=== PATIENT | female | born 1995 | race Caucasian/White ===

== ENCOUNTER 2016-11-30 04:01 | Emergency (ER) | payer OTHER ==
[~2016-11-30] VITALS: Ht 167.6 cm; Wt 55.3 kg
[~2016-11-30 04:01] MED LIST: ADVAIR 250/501 DISK IH; Proventil,Ventolin 0 IH; Proventil,Ventolin H IH; predniSONE PO
[2016-11-30 04:38] LABS: HEMATOCRIT 34.3 % (36.0-46.0); MCH 30.8 PG (29.0-34.0); MCV 87.9 FL (83-99); MEAN PLAT.VOLUME 10.4 uM^3 (9.5-12.4); PLATELET COUNT 354 K/uL (156-360); RBC DIS.WIDTH-CV 12.7 % (11.8-14.6); RBC DIS.WIDTH-SD 39.6 % (39-53); WHITE BLOOD COUNT 10.3 K/uL (4.1-10.2)
[2016-11-30 04:48] LABS: CHLORIDE 108 mEq/L (99-109); POTASSIUM 2.9 mEq/L (3.7-5.4); SODIUM 138 mEq/L (136-147)
[2016-11-30 04:50] LABS: GLUCOSE 102 mg/dL (70-99)
[2016-11-30 04:52] LABS: ANION GAP 9 MEQ/L (2-14); TOTAL BILIRUBIN 0.9 mg/dL (0.0-1.0)
[2016-11-30 04:54] LABS: ALKALINE PHOSPHATASE 46 IU/L (3-129); GFR ESTIMATE (CALCULATED) > 59 mL/min/
[2016-11-30 04:55] LABS: UREA NITROGEN (BUN) 11 mg/dL (9-23)
[2016-11-30 04:57] LABS: LIPASE 18 U/L (1.0-51.0)
[2016-11-30 05:04] LABS: QUANTITATIVE HCG < 4.0 MIU/ML
[2016-11-30] MEDS ORDERED: PERCOCET 5/31 TABLET PO (06:05)
[2016-11-30] MEDS ORDERED: TORADOL10 MG PO (06:05)
[2016-11-30 09:25] LABS: ADD MIUA? YES; BILIRUBIN NEGATIVE; BLOOD LARGE; COLOR YELLOW ((YELLOW)); GLUCOSE (STRIP) NEGATIVE; KETONES NEGATIVE; LEUKOCYTES NEGATIVE; NITRITE NEGATIVE; PROTEIN (STRIP) NEGATIVE
[2016-11-30 09:43] LABS: SPECIFIC GRAVITY 1.052 (1.000-1.030)
[2016-11-30 09:57] LABS: BACTERIA NONE SEEN; CASTS NONE SEEN /LPF; CRYSTALS NONE SEEN; EPITHELIAL CELLS RARE; MUCUS NONE SEEN; RED BLOOD CELLS 40-50 /HPF (0-5); UCUL ADDED? NO; WHITE BLOOD CELLS NONE SEEN /HPF (0-5)
[2016-11-30 10:23] VITALS: BP 98/69
== END 2016-11-30 10:24 | disposition home or self-care (01) ==
LOC: EME 04:01
PROVIDERS: Emergency Medicine
DX: N83.201 Unspecified ovarian cyst, right side (principal); N83.202 Unspecified ovarian cyst, left side; R10.30 Lower abdominal pain, unspecified; E87.6 Hypokalemia; J45.909 Unspecified asthma, uncomplicated; Z88.1 Allergy status to other antibiotic agents
CPT/HCPCS: 74177; 76856; 80053; 81003; 83605; 83690; 84702; 85027; 86850; 86900; 86901; 99281; 99285; J1885; J2270; J2405; J7030

== ENCOUNTER 2017-05-09 13:37 | Observation (INO) | payer OTHER ==
[~2017-05-09] VITALS: Ht 167.6 cm; Wt 54.5 kg
[~2017-05-09 13:37] MED LIST changes: +PERCOCET 5/31 TABLET PO; +TORADOL10 MG PO
[2017-05-09 15:19] LABS: HEMATOCRIT 37.2 % (36.0-46.0); MCH 30.2 PG (29.0-34.0); MCHC 34.1 G/DL (30.0-36.0); MCV 88.6 FL (83-99); MEAN PLAT.VOLUME 10.5 uM^3 (9.5-12.4); PLATELET COUNT 399 K/uL (156-360); RBC DIS.WIDTH-CV 12.3 % (11.8-14.6); RBC DIS.WIDTH-SD 39.7 % (39-53); WHITE BLOOD COUNT 10.1 K/uL (4.1-10.2)
[2017-05-09 15:24] LABS: CHLORIDE 109 mEq/L (99-109); POTASSIUM 3.7 mEq/L (3.7-5.4); SODIUM 141 mEq/L (136-147)
[2017-05-09 15:25] LABS: GLUCOSE 94 mg/dL (70-99)
[2017-05-09 15:27] LABS: ANION GAP 7 MEQ/L (2-14)
[2017-05-09 15:29] LABS: GFR ESTIMATE (CALCULATED) > 59 mL/min/
[2017-05-09 15:30] LABS: UREA NITROGEN (BUN) 8 mg/dL (9-23)
[2017-05-09 15:37] LABS: TROP-I INTERPRETATION NEGATIVE; TROPONIN-I < 0.01 ng/mL (0.0-0.30)
[2017-05-09] MEDS ORDERED: VENTOLIN HFA18 GM IH (18:21)
[2017-05-09 20:41] VITALS: BP 99/78
== END 2017-05-09 20:43 | disposition left against medical advice (07) ==
LOC: EME 13:37 → EDOF 18:36
PROVIDERS: Emergency Medicine
DX: I49.8 Other specified cardiac arrhythmias (principal); J45.909 Unspecified asthma, uncomplicated; Z88.1 Allergy status to other antibiotic agents
CPT/HCPCS: 80048; 84484; 85027; 93005; 99281; 99285; G0378; J7030

== ENCOUNTER 2017-10-08 14:44 | Observation (INO) | payer OTHER ==
[~2017-10-08] VITALS: Ht 167.6 cm; Wt 52.2 kg
[~2017-10-08 14:44] MED LIST changes: +VENTOLIN HFA18 GM IH
[2017-10-08 16:11] LABS: BASOPHIL COUNT 0.1 K/uL (0-0.1); EOSINOPHIL (%) 1.7 % (0-5); EOSINOPHIL COUNT 0.2 K/uL (0-0.3); HEMATOCRIT 37.7 % (36.0-46.0); IMMATURE GRANULOCYTE (%) 0.5 % (0.0-0.7); IMMATURE GRANULOCYTE COUNT 0.1 K/uL; INSTRUMENT ABS NEUTROPHIL CT 8.2 K/uL; LYMPHOCYTE COUNT 3.5 K/uL (1.0-2.8); MCH 30.8 PG (29.0-34.0); MCV 87.9 FL (83-99); MEAN PLAT.VOLUME 10.7 uM^3 (9.5-12.4); MONOCYTE (%) 9.2 % (3-12); MONOCYTE COUNT 1.2 K/uL (0-0.8); NEUTROPHIL (%) 61.8 % (45-76); NEUTROPHIL COUNT 8.2 K/uL (1.8-6.4); PLATELET COUNT 366 K/uL (156-360); RBC DIS.WIDTH-CV 12.2 % (11.8-14.6); RBC DIS.WIDTH-SD 39.4 % (39-53); RED BLOOD COUNT 4.29 M/uL (3.80-5.20); WHITE BLOOD COUNT 13.2 K/uL (4.1-10.2)
[2017-10-08 16:21] LABS: CHLORIDE 109 mEq/L (99-109); POTASSIUM 3.6 mEq/L (3.7-5.4); SODIUM 140 mEq/L (136-147)
[2017-10-08 16:23] LABS: GLUCOSE 103 mg/dL (70-99)
[2017-10-08 16:25] LABS: ANION GAP 11 MEQ/L (2-14); TOTAL BILIRUBIN 0.4 mg/dL (0.0-1.0)
[2017-10-08 16:27] LABS: ALKALINE PHOSPHATASE 57 IU/L (3-129); GFR ESTIMATE (CALCULATED) > 59 mL/min/
[2017-10-08 16:28] LABS: UREA NITROGEN (BUN) 10 mg/dL (9-23)
[2017-10-08 16:29] LABS: ADD MIUA? YES; BILIRUBIN NEGATIVE; BLOOD NEGATIVE; COLOR YELLOW ((YELLOW)); GLUCOSE (STRIP) NEGATIVE; KETONES NEGATIVE; LEUKOCYTES MODERATE; NITRITE NEGATIVE; PROTEIN (STRIP) NEGATIVE; SPECIFIC GRAVITY 1.008 (1.000-1.030); UROBILINOGEN 0.2 MG/DL (0.2-1.0)
[2017-10-08 16:30] LABS: LIPASE 31 U/L (1.0-51.0)
[2017-10-08 16:34] LABS: INTERNAL CONTROL VALID? YES
[2017-10-08 16:40] LABS: BACTERIA RARE /HPF; EPITHELIAL CELLS 2+ /HPF; MUCUS NONE SEEN /LPF; RED BLOOD CELLS 0-5 /HPF (0-5); UCUL ADDED? YES
[2017-10-08] MEDS ORDERED: BENADRYL ALLERG25 MG PO (22:30)
[2017-10-09] VITALS: BP 110/72
[2017-10-09 04:08] VITALS: BP 108/68
[2017-10-09 06:07] LABS: BASOPHIL COUNT 0.1 K/uL (0-0.1); EOSINOPHIL (%) 1.4 % (0-5); EOSINOPHIL COUNT 0.2 K/uL (0-0.3); HEMATOCRIT 36.2 % (36.0-46.0); IMMATURE GRANULOCYTE (%) 0.3 % (0.0-0.7); INSTRUMENT ABS NEUTROPHIL CT 7.2 K/uL; LYMPHOCYTE COUNT 4.3 K/uL (1.0-2.8); MCH 31.1 PG (29.0-34.0); MCHC 34.8 G/DL (30.0-36.0); MCV 89.4 FL (83-99); MEAN PLAT.VOLUME 10.9 uM^3 (9.5-12.4); MONOCYTE (%) 8.3 % (3-12); MONOCYTE COUNT 1.1 K/uL (0-0.8); NEUTROPHIL (%) 56.1 % (45-76); NEUTROPHIL COUNT 7.2 K/uL (1.8-6.4); PLATELET COUNT 343 K/uL (156-360); RBC DIS.WIDTH-CV 12.6 % (11.8-14.6); RBC DIS.WIDTH-SD 41.1 % (39-53); RED BLOOD COUNT 4.05 M/uL (3.80-5.20); WHITE BLOOD COUNT 12.9 K/uL (4.1-10.2)
[2017-10-09 06:24] LABS: ALKALINE PHOSPHATASE 48 IU/L (3-129); ANION GAP 10 MEQ/L (2-14); CHLORIDE 108 MEQ/L (99-109); GFR ESTIMATE (CALCULATED) > 59 mL/min/; GLUCOSE 90 mg/dL (70-99); POTASSIUM 3.6 MEQ/L (3.7-5.4); SAMPLE HEMOLYSIS CHECK 0; SAMPLE ICTERIC CHECK 0; SAMPLE LIPEMIA CHECK 0; SODIUM 141 MEQ/L (136-147); TOTAL BILIRUBIN 0.7 MG/DL (0.0-1.0); UREA NITROGEN (BUN) 6 mg/dL (9-23)
[2017-10-09 07:49] VITALS: BP 98/59
[2017-10-09] MEDS ORDERED: DILAUDID2 MG PO (09:30)
[2017-10-09] MEDS ORDERED: COLACE100 MG PO (09:30)
[2017-10-09 11:09] VITALS: BP 100/61
[2017-10-09 20:00] VITALS: BP 93/59
[2017-10-10 00:26] VITALS: BP 93/64
[2017-10-10 04:04] VITALS: BP 93/55
[2017-10-10 08:03] VITALS: BP 102/61
[2017-10-10 09:30] LABS: EOSINOPHIL (%) 1.4 % (0-5); EOSINOPHIL COUNT 0.2 K/uL (0-0.3); HEMATOCRIT 34.6 % (36.0-46.0); IMMATURE GRANULOCYTE (%) 0.3 % (0.0-0.7); LYMPHOCYTE COUNT 1.4 K/uL (1.0-2.8); MCH 30.5 PG (29.0-34.0); MCHC 33.5 G/DL (30.0-36.0); MCV 91.1 FL (83-99); MEAN PLAT.VOLUME 10.9 uM^3 (9.5-12.4); MONOCYTE (%) 10.5 % (3-12); MONOCYTE COUNT 1.1 K/uL (0-0.8); NEUTROPHIL (%) 74.8 % (45-76); PLATELET COUNT 271 K/uL (156-360); RBC DIS.WIDTH-CV 12.6 % (11.8-14.6); RBC DIS.WIDTH-SD 41.8 % (39-53); WHITE BLOOD COUNT 10.7 K/uL (4.1-10.2)
[2017-10-10 09:52] LABS: ANION GAP 8 MEQ/L (2-14); CHLORIDE 108 MEQ/L (99-109); GFR ESTIMATE (CALCULATED) > 59 mL/min/; GLUCOSE 86 mg/dL (70-99); POTASSIUM 3.8 MEQ/L (3.7-5.4); SAMPLE HEMOLYSIS CHECK 1; SAMPLE ICTERIC CHECK 0; SAMPLE LIPEMIA CHECK 0; SODIUM 141 MEQ/L (136-147); UREA NITROGEN (BUN) 5 mg/dL (9-23)
[2017-10-10 11:39] VITALS: BP 101/64
[2017-10-10] MEDS ORDERED: ZOFRAN4 MG PO (13:28)
== END 2017-10-10 13:52 | disposition home or self-care (01) ==
LOC: EME 14:44 → 2EAST 22:10 → EDOF 22:10 → ENRESERV 22:13 → 2EAST 23:57
PROVIDERS: Emergency Medicine; Physician Assistant; Surgery
PROC: 0FT44ZZ Resection of Gallbladder, Percutaneous Endoscopic Approach (ICD-10-PCS; principal; 2017-10-09)
DX: K80.10 Calculus of gallbladder with chronic cholecystitis without obstruction (principal); I49.8 Other specified cardiac arrhythmias; J45.909 Unspecified asthma, uncomplicated; Z88.1 Allergy status to other antibiotic agents
CPT/HCPCS: 74176; 76705; 80048; 80053; 81003; 83690; 83735; 84100; 84703; 85025; 87086; 88304; 99281; 99285; G0378; J0131; J0744; J1170; J1650; J1885; J2175; J2250; J2270; J2405; J2765; J3010; J3480; J7030; J7120; S0028

== ENCOUNTER 2017-10-10 23:48 | Inpatient (IN) | payer OTHER ==
[~2017-10-10] VITALS: Ht 167.6 cm; Wt 55.4 kg
[~2017-10-10 23:48] MED LIST changes: +BENADRYL ALLERG25 MG PO; +COLACE100 MG PO; +DILAUDID2 MG PO; +ZOFRAN4 MG PO
[2017-10-11] VITALS (7 sets, daily range): BP systolic 91–103; BP diastolic 52–69
[2017-10-11 00:26] LABS: MCH 30.8 PG (29.0-34.0); MCHC 34.6 G/DL (30.0-36.0); MCV 89.1 FL (83-99); MEAN PLAT.VOLUME 10.5 uM^3 (9.5-12.4); PLATELET COUNT 271 K/uL (156-360); RBC DIS.WIDTH-CV 12.2 % (11.8-14.6); RED BLOOD COUNT 3.93 M/uL (3.80-5.20); WHITE BLOOD COUNT 15.1 K/uL (4.1-10.2)
[2017-10-11 00:36] LABS: CHLORIDE 106 mEq/L (99-109); POTASSIUM 3.7 mEq/L (3.7-5.4); SODIUM 135 mEq/L (136-147)
[2017-10-11 00:37] LABS: GLUCOSE 104 mg/dL (70-99)
[2017-10-11 00:38] LABS: ANION GAP 8 MEQ/L (2-14)
[2017-10-11 00:40] LABS: GFR ESTIMATE (CALCULATED) > 59 mL/min/; TOTAL BILIRUBIN 1.8 mg/dL (0.0-1.0)
[2017-10-11 00:41] LABS: ALKALINE PHOSPHATASE 96 IU/L (3-129)
[2017-10-11 00:42] LABS: UREA NITROGEN (BUN) 5 mg/dL (9-23)
[2017-10-11 00:49] LABS: QUANTITATIVE HCG < 4.0 MIU/ML
[2017-10-11 01:02] LABS: LIPASE 19 U/L (1.0-51.0)
[2017-10-11 03:34] LABS: ADD MIUA? NO; BILIRUBIN NEGATIVE; BLOOD NEGATIVE; COLOR YELLOW ((YELLOW)); GLUCOSE (STRIP) NEGATIVE; KETONES 80; LEUKOCYTES NEGATIVE; NITRITE NEGATIVE; PROTEIN (STRIP) NEGATIVE; SPECIFIC GRAVITY 1.045 (1.000-1.030); UCUL ADDED? NO; UROBILINOGEN 0.2 MG/DL (0.2-1.0)
[2017-10-11 09:26] LABS: EOSINOPHIL (%) 0.7 % (0-5); EOSINOPHIL COUNT 0.1 K/uL (0-0.3); HEMATOCRIT 32.3 % (36.0-46.0); IMMATURE GRANULOCYTE (%) 0.4 % (0.0-0.7); IMMATURE GRANULOCYTE COUNT 0.1 K/uL; INSTRUMENT ABS NEUTROPHIL CT 9.8 K/uL; LYMPHOCYTE COUNT 1.2 K/uL (1.0-2.8); MCH 30.6 PG (29.0-34.0); MCHC 34.1 G/DL (30.0-36.0); MEAN PLAT.VOLUME 10.7 uM^3 (9.5-12.4); MONOCYTE (%) 10.5 % (3-12); MONOCYTE COUNT 1.3 K/uL (0-0.8); NEUTROPHIL (%) 78.5 % (45-76); NEUTROPHIL COUNT 9.8 K/uL (1.8-6.4); PLATELET COUNT 273 K/uL (156-360); RBC DIS.WIDTH-CV 12.3 % (11.8-14.6); RBC DIS.WIDTH-SD 40.2 % (39-53); RED BLOOD COUNT 3.59 M/uL (3.80-5.20); WHITE BLOOD COUNT 12.4 K/uL (4.1-10.2)
[2017-10-11 10:05] LABS: ANION GAP 6 MEQ/L (2-14); CHLORIDE 107 MEQ/L (99-109); DIRECT BILIRUBIN 1.1 mg/dL (0.0-0.3); GFR ESTIMATE (CALCULATED) > 59 mL/min/; GLUCOSE 111 mg/dL (70-99); POTASSIUM 4.3 MEQ/L (3.7-5.4); SAMPLE HEMOLYSIS CHECK 0; SAMPLE ICTERIC CHECK 0; SAMPLE LIPEMIA CHECK 0; SODIUM 139 MEQ/L (136-147); UREA NITROGEN (BUN) 4 mg/dL (9-23)
[2017-10-11 10:06] LABS: ALKALINE PHOSPHATASE 100 IU/L (3-129); TOTAL BILIRUBIN 2.2 MG/DL (0.0-1.0)
[2017-10-12 03:42] VITALS: BP 86/53
[2017-10-12 07:18] LABS: EOSINOPHIL (%) 1.1 % (0-5); EOSINOPHIL COUNT 0.1 K/uL (0-0.3); HEMATOCRIT 33.3 % (36.0-46.0); IMMATURE GRANULOCYTE (%) 0.3 % (0.0-0.7); INSTRUMENT ABS NEUTROPHIL CT 9.1 K/uL; LYMPHOCYTE COUNT 1.5 K/uL (1.0-2.8); MCH 30.1 PG (29.0-34.0); MCV 91.2 FL (83-99); MONOCYTE (%) 6.1 % (3-12); MONOCYTE COUNT 0.7 K/uL (0-0.8); NEUTROPHIL (%) 79.6 % (45-76); NEUTROPHIL COUNT 9.1 K/uL (1.8-6.4); PLATELET COUNT 255 K/uL (156-360); RBC DIS.WIDTH-CV 12.2 % (11.8-14.6); RBC DIS.WIDTH-SD 40.7 % (39-53); RED BLOOD COUNT 3.65 M/uL (3.80-5.20); WHITE BLOOD COUNT 11.5 K/uL (4.1-10.2)
[2017-10-12 07:23] VITALS: BP 99/57
[2017-10-12 07:50] LABS: ALKALINE PHOSPHATASE 91 IU/L (3-129); ANION GAP 10 MEQ/L (2-14); CHLORIDE 109 MEQ/L (99-109); GFR ESTIMATE (CALCULATED) > 59 mL/min/; POTASSIUM 4.9 MEQ/L (3.7-5.4); SAMPLE HEMOLYSIS CHECK 0; SAMPLE ICTERIC CHECK 0; SAMPLE LIPEMIA CHECK 0; SODIUM 138 MEQ/L (136-147); UREA NITROGEN (BUN) 9 mg/dL (9-23)
[2017-10-12 07:52] LABS: DIRECT BILIRUBIN 0.3 mg/dL (0.0-0.3); GLUCOSE 64 mg/dL (70-99); TOTAL BILIRUBIN 0.8 MG/DL (0.0-1.0)
[2017-10-12] MEDS ORDERED: MELATIN3 MG PO (11:40)
[2017-10-12 12:30] VITALS: BP 92/54
[2017-10-12 15:40] VITALS: BP 101/56
[2017-10-12 20:25] VITALS: BP 97/52
[2017-10-13] VITALS (8 sets, daily range): BP systolic 83–107; BP diastolic 52–69
[2017-10-13 07:40] LABS: EOSINOPHIL (%) 4.4 % (0-5); EOSINOPHIL COUNT 0.3 K/uL (0-0.3); HEMATOCRIT 30.5 % (36.0-46.0); IMMATURE GRANULOCYTE (%) 0.3 % (0.0-0.7); INSTRUMENT ABS NEUTROPHIL CT 3.6 K/uL; LYMPHOCYTE COUNT 1.8 K/uL (1.0-2.8); MCH 30.7 PG (29.0-34.0); MCHC 33.8 G/DL (30.0-36.0); MEAN PLAT.VOLUME 11.1 uM^3 (9.5-12.4); MONOCYTE (%) 11.8 % (3-12); MONOCYTE COUNT 0.8 K/uL (0-0.8); NEUTROPHIL (%) 55.5 % (45-76); NEUTROPHIL COUNT 3.6 K/uL (1.8-6.4); PLATELET COUNT 271 K/uL (156-360); RBC DIS.WIDTH-CV 12.5 % (11.8-14.6); RBC DIS.WIDTH-SD 41.7 % (39-53); RED BLOOD COUNT 3.35 M/uL (3.80-5.20); WHITE BLOOD COUNT 6.4 K/uL (4.1-10.2)
[2017-10-13 07:48] LABS: ALKALINE PHOSPHATASE 98 IU/L (3-129); ANION GAP 5 MEQ/L (2-14); CHLORIDE 111 MEQ/L (99-109); GFR ESTIMATE (CALCULATED) > 59 mL/min/; MAGNESIUM 1.7 mg/dl (1.3-2.7); SAMPLE HEMOLYSIS CHECK 0; SAMPLE ICTERIC CHECK 0; SAMPLE LIPEMIA CHECK 0; SODIUM 141 MEQ/L (136-147); TOTAL BILIRUBIN 0.7 MG/DL (0.0-1.0); UREA NITROGEN (BUN) 3 mg/dL (9-23)
[2017-10-13 07:50] LABS: GLUCOSE 88 mg/dL (70-99)
[2017-10-14 03:17] VITALS: BP 98/51
[2017-10-14 07:39] LABS: EOSINOPHIL (%) 5.1 % (0-5); EOSINOPHIL COUNT 0.3 K/uL (0-0.3); HEMATOCRIT 33.5 % (36.0-46.0); IMMATURE GRANULOCYTE (%) 0.2 % (0.0-0.7); INSTRUMENT ABS NEUTROPHIL CT 3.4 K/uL; LYMPHOCYTE COUNT 1.6 K/uL (1.0-2.8); MCH 31.2 PG (29.0-34.0); MCHC 34.3 G/DL (30.0-36.0); MCV 90.8 FL (83-99); MEAN PLAT.VOLUME 10.6 uM^3 (9.5-12.4); MONOCYTE (%) 12.9 % (3-12); MONOCYTE COUNT 0.8 K/uL (0-0.8); NEUTROPHIL (%) 54.5 % (45-76); NEUTROPHIL COUNT 3.4 K/uL (1.8-6.4); PLATELET COUNT 287 K/uL (156-360); RBC DIS.WIDTH-CV 12.6 % (11.8-14.6); RBC DIS.WIDTH-SD 41.7 % (39-53); RED BLOOD COUNT 3.69 M/uL (3.80-5.20); WHITE BLOOD COUNT 6.1 K/uL (4.1-10.2)
[2017-10-14 08:06] LABS: ALKALINE PHOSPHATASE 84 IU/L (3-129); ANION GAP 5 MEQ/L (2-14); CHLORIDE 106 MEQ/L (99-109); DIRECT BILIRUBIN 0.2 mg/dL (0.0-0.3); GFR ESTIMATE (CALCULATED) > 59 mL/min/; GLUCOSE 94 mg/dL (70-99); POTASSIUM 4.1 MEQ/L (3.7-5.4); SAMPLE HEMOLYSIS CHECK 0; SAMPLE ICTERIC CHECK 0; SAMPLE LIPEMIA CHECK 0; SODIUM 141 MEQ/L (136-147); TOTAL BILIRUBIN 0.6 MG/DL (0.0-1.0); UREA NITROGEN (BUN) 2 mg/dL (9-23)
[2017-10-14 08:27] VITALS: BP 93/52
== END 2017-10-14 08:33 | disposition home or self-care (01) | DRG 948 ==
LOC: EME 23:48 → EDOF 10-11 02:56 → ENRESERV 10-11 02:57 → 2EASTP 10-11 05:20
PROVIDERS: Physician Assistant; Surgery
DX: G89.18 Other acute postprocedural pain (principal); T81.82XA Emphysema (subcutaneous) resulting from a procedure, initial encounter; T81.89XA Other complications of procedures, not elsewhere classified, initial encounter; K66.8 Other specified disorders of peritoneum; J93.9 Pneumothorax, unspecified; E87.2 Acidosis; E86.0 Dehydration; J45.909 Unspecified asthma, uncomplicated; I49.8 Other specified cardiac arrhythmias; Z88.5 Allergy status to narcotic agent
CPT/HCPCS: 71020; 74000; 74176; 74177; 76705; 80048; 80053; 80076; 81003; 82248; 83690; 83735; 84100; 84702; 84703; 85025; 85027; 87086; 88304; 99281; 99285; G0378; J0131; J0744; J1170; J1650; J1885; J2175; J2250; J2270; J2405; J2543; J2765; J3010; J3480; J7030; J7040; J7050; J7120; S0028

== ENCOUNTER 2018-03-23 23:53 | Emergency (ER) | payer OTHER ==
[~2018-03-23] VITALS: Ht 167.6 cm; Wt 57.7 kg
[~2018-03-23 23:53] MED LIST changes: +MELATIN3 MG PO
[2018-03-24 00:25] LABS: HEMATOCRIT 37.5 % (36.0-46.0); HEMOGLOBIN 13.2 G/DL (11.9-15.5); MCH 31.1 PG (29.0-34.0); MCHC 35.2 G/DL (30.0-36.0); MCV 88.4 FL (83-99); PLATELET COUNT 388 K/uL (156-360); RBC DIS.WIDTH-CV 12.4 % (11.8-14.6); RBC DIS.WIDTH-SD 39.9 % (39-53); RED BLOOD COUNT 4.24 M/uL (3.80-5.20); WHITE BLOOD COUNT 11.1 K/uL (4.1-10.2)
[2018-03-24 00:35] LABS: CHLORIDE 108 mEq/L (99-109); POTASSIUM 3.6 mEq/L (3.7-5.4); SODIUM 144 mEq/L (136-147)
[2018-03-24 00:36] LABS: GLUCOSE 104 mg/dL (70-99)
[2018-03-24 00:40] LABS: CREATININE 0.8 mg/dL (0.6-1.3); GFR ESTIMATE (CALCULATED) > 59 mL/min/
[2018-03-24 00:41] LABS: UREA NITROGEN (BUN) 7 mg/dL (9-23)
[2018-03-24 00:46] LABS: TROP-I INTERPRETATION NEGATIVE; TROPONIN-I < 0.01 ng/mL (0.0-0.30)
[2018-03-24 03:42] LABS: APPEARANCE CLEAR ((CLEAR)); BILIRUBIN NEGATIVE; BLOOD LARGE; COLOR YELLOW ((YELLOW)); GLUCOSE (STRIP) NEGATIVE; KETONES NEGATIVE; LEUKOCYTES TRACE; NITRITE NEGATIVE; PROTEIN (STRIP) 30; SPECIFIC GRAVITY 1.027 (1.000-1.030); UROBILINOGEN 0.2 MG/DL (0.2-1.0)
[2018-03-24 03:51] LABS: BACTERIA RARE /HPF; EPITHELIAL CELLS RARE /HPF; MUCUS TRACE /LPF; RED BLOOD CELLS TNTC /HPF (0-5); WHITE BLOOD CELLS 0-5 /HPF (0-5)
[2018-03-24 04:04] LABS: D-DIMER ELISA < 150.00 ng/mLDDU (<230)
[2018-03-24 04:36] VITALS: BP 91/71
== END 2018-03-24 04:38 | disposition home or self-care (01) ==
LOC: EME 23:53
PROVIDERS: Physician Assistant
DX: R07.89 Other chest pain (principal); I49.8 Other specified cardiac arrhythmias; J45.909 Unspecified asthma, uncomplicated; Z88.5 Allergy status to narcotic agent; Z88.1 Allergy status to other antibiotic agents
CPT/HCPCS: 71046; 80048; 81003; 84484; 85027; 85379; 93005; 99281; 99283